=== PATIENT | male | born 1990 | race Caucasian/White ===

== ENCOUNTER 2016-06-11 00:19 | Emergency (ER) | payer OTHER ==
[~2016-06-11] VITALS: Ht 160 cm; Wt 64.8 kg
[2016-06-11 00:21] VITALS: BP 122/88
[2016-06-11] MEDS ORDERED: FLUORESCEIN OPHTHALMIC 1 MG STRIP ONE (00:25)
[2016-06-11] MEDS ORDERED: PROPARACAINE OPHTH 0.5%, 15ML ONE (00:25)
== END 2016-06-11 01:44 | disposition home or self-care (01) ==
LOC: ED 01:10
DX: H00.012 Hordeolum externum right lower eyelid (principal)
CPT/HCPCS: 99283